=== PATIENT | male | born 1990 | race Caucasian/White ===

== ENCOUNTER 2019-05-03 10:46 | Emergency (ER) | payer OTHER ==
[~2019-05-03] VITALS: Ht 165.1 cm; Wt 83.5 kg
--- NOTE | 2019-05-03 11:11 | NUR ---
THIS IS A 28 YO M / W/O RT SIDED GROIN PAIN AND SWELLING THAT RADIATES UP TO RIBS. 7/10 PAIN W/ ACTIVITY, 5/10 PAIN AT REST. PT REPORTS DX W/ INGUINAL HERNIA LAST WEEK AT [place] BUT PAIN IS WORSENING. REPORTS NEW GENERAL ABD CRAMPING AFTER EATING. DENIES N/V. VS STABLE. PT IS RESTING ON GURNEY W/ CALL LIGHT IN REACH. AWAITING ED EVAL.
--- NOTE | 2019-05-03 11:37 | NUR ---
PIV STARTED. LABS DRAWN AND SENT TO LAB. PT RESTING ON [facility] W/ CALL LIGHT IN REACH AND FAMILY AT BEDSIDE. AWAITING CT.
[2019-05-03 11:48] LABS: BASOPHILS # (AUTO) 0.06 x10^3/uL (0-0.1); BASOPHILS % (AUTO) 1 % (0-1); EOSINOPHILS # (AUTO) 0.16 x10^3/uL (0-0.4); EOSINOPHILS % (AUTO) 2 % (1-7); LYMPHOCYTES # (AUTO) 2.31 x10^3/uL (1-3.4); LYMPHOCYTES % (AUTO) 32 % (22-44); MD NO; MEAN CORPUSCULAR HEMOGLOBIN 29.2 pg (27.5-34.5); MEAN CORPUSCULAR HGB CONC 33.7 g/dL (33.2-36.2); MEAN CORPUSCULAR VOLUME 86.5 fL (81-97); MEAN PLATELET VOLUME 7.7 fL (7.4-10.4); MONOCYTES % (AUTO) 8 % (2-9); NEUTROPHILS # (AUTO) 4.05 x10^3/uL (1.8-6.8); NEUTROPHILS % (AUTO) 56 % (42-75); PLATELET COUNT 268 x10^3/uL (130-400); RED BLOOD COUNT 5.53 x10^6/uL (4.38-5.82)
[2019-05-03 12:00] LABS: ALANINE AMINOTRANSFERASE 109 U/L (12-78); ALBUMIN 3.7 g/dL (3.4-5.0); ANION GAP 6 mmol/L (5-15); CALCIUM 9.1 mg/dL (8.5-10.1); CHLORIDE 108 mmol/L (98-107); CREATININE 0.98 mg/dL (0.7-1.3)
[2019-05-03 12:02] LABS: ALKALINE PHOSPHATASE 66 U/L (45-117); BILIRUBIN,TOTAL 0.8 mg/dL (0.2-1.0); TOTAL PROTEIN 7.6 g/dL (6.4-8.2)
[2019-05-03 12:07] VITALS: BP 105/68
--- NOTE | 2019-05-03 12:19 | NUR ---
PT RESTING ON [employer] W/ CALL LIGHT IN REACH. AWAITING CT.
--- NOTE | 2019-05-03 12:43 | NUR ---
PT TO CT.
[2019-05-03] MEDS ORDERED: OMNIPAQUE 350 MG/ML, 100ML BOTTLE ONE (12:58)
--- NOTE | 2019-05-03 13:08 | NUR ---
ALL TESTS RESULTED. PT IS UP FOR RECHECK AT THIS TIME.
--- NOTE | 2019-05-03 13:25 | NUR ---
DR ULLOA AT BEDSIDE TO RE-EVAL PT.
--- NOTE | 2019-05-03 13:30 | NUR ---
CARE FOR DC ONLY PROVIDED. PT SITTING UP ON GURNEY. NO ACUTE DISTRESS NOTED. IV DC'D WITH CANNULA INTACT. REVIEWED DC INSTRUCTIONS WITH PT. PT ALSO PROVIDED WITH LIST OF [facility]. NO OTHER NEEDS EXPRESSED. PT LEFT AMB, GAIT STEADY WITH FAMILY.
== END 2019-05-03 13:43 | disposition home or self-care (01) ==
LOC: ED 13:42
DX: K40.90 Unilateral inguinal hernia, without obstruction or gangrene, not specified as recurrent (principal); R10.84 Generalized abdominal pain
CPT/HCPCS: 36415; 74177; 80053; 83690; 85025; 99285; Q9967